=== PATIENT | male | born 1990 | race Caucasian/White ===

== ENCOUNTER → 2022-08-25 12:09 | Outpatient (BNVA) | payer SELFPAY | PROVIDERS: Visit Provider Nurse Practitioner Family | DX: R36.9 Urethral discharge, unspecified (principal); B37.49 Other urogenital candidiasis; E66.9 Obesity, unspecified; Z13.1 Encounter for screening for diabetes mellitus; Z13.220 Encounter for screening for lipoid disorders; B37.9 Candidiasis, unspecified; N34.2 Other urethritis | CPT/HCPCS: 80053; 80061; 83036; 87491; 87591; 87661 ==

== ENCOUNTER 2024-03-08 09:48 | Emergency (ER) | payer SELFPAY ==
[2024-03-08 10:03] VITALS: BP 147/89; PULSE 71; RESP 18; TEMP 36.8; O2SAT 98
--- NOTE | 2024-03-08 10:11 | ED_ITS ---
HPI - Skin/Abscess/Foreign Bdy General: Chief complaint: Skin/Abscess/Foreign Body Stated complaint: poison Josephine all over Time Seen by Provider: 03/08/24 10:03 Source: patient Mode of arrival: ambulatory Limitations: no limitations History of Present Illness: This patient presents to the emergency department because of generalized rash and itching. He states that he was out weed eating 2 days ago and spent most of the day involved in similar activities and other activities and did not get a shower until the end of the day. Subsequently he has developed itching and a red rash particularly on his trunk both upper and lower extremities and some on his face. No difficulty breathing swallowing etc. No other known environmental exposures. Has had a history of poison josephine as a teenager. He currently takes no medications and is in good health. MD complaint: rash Location: generalized Severity: moderate Quality: pruritic Relieving factors: none Associated symptoms: Deny chills, fever(s), nausea or vomiting Review of Systems Const: Denies: fever(s) or chills Eyes: Denies: change in vision, eye discomfort or eye discharge ENMT: Denies: throat pain, odynophagia, nasal discharge or nasal congestion Card: Denies: chest pain Resp: Denies: dyspnea, productive cough, non-productive cough or wheezing GI: Denies: nausea, vomiting or diarrhea Skin/Breast: Reports: rash, pruritus and erythema Neuro: Denies: headache(s), numbness in extremities or weakness in extremities Jayme/Lymph: Denies: easy bruising or easy bleeding Physical Exam Narrative: EXAM NARRATIVE: Gentleman was oriented and appeared to be comfortable. Answers questions a goal-directed fashion and fluent voice. Const: COMMON NORMALS: no acute distress, patient oriented x3, healthy appearing and alert GENERAL APPEARANCE: cooperative NUTRITIONAL APPEARANCE: overweight HENMT: COMMON NORMALS: normocephalic, Normal nasal mucous membranes and turbinates present, moist oral mucous membranes and oropharynx normal HEAD & SCALP: normocephalic FACE & SINUS: erythema (Faint erythema on forehead and the lateral portions of upper face) NOSE: Normal nasal mucous membranes and turbinates present Eye: COMMON NORMALS: Equal, round and reactive pupils present, EOMs intact bilaterally and conjunctivae normal CONJUNCTIVA: Yes conjunctivae normal PUPIL: Yes Equal, round and reactive pupils present Neck/C-Spine: COMMON NORMALS: full ROM Resp: COMMON NORMALS: normal respiratory effort, No use of accessory muscles and clear to auscultation bilaterally AUSCULTATION: clear to auscultation bilaterally Cardio: COMMON NORMALS: regular rate, regular rhythm, No murmurs present (Cardio) and Peripheral pulses 2+ throughout RATE: regular rate RHYTHM: regular rhythm PERIPHERAL PULSES: Peripheral pulses 2+ throughout GI: COMMON NORMALS: Soft to palpation PALPATION: Yes Soft to palpation Back/Pelvis: COMMON NORMALS: no thoracic nor lumbar tenderness and thoraco- lumbar ROM normal Extremity: COMMON NORMALS: full ROM, capillary refill normal, no clubbing, cyanosis or edema, no calf tenderness and no pedal edema Neuro: COMMON NORMALS: patient oriented x3, moves all extremities, no focal motor deficits and no sensory deficits noted SENSORIUM/ORIENTATION: Yes alert Psych: COMMON NORMALS: mental status grossly normal Skin: NARRATIVE SKIN EXAM: Multiple areas of patches of erythema with some excoriations in other locations. Skin of both lower extremities and less so of the upper extremities involved. Some involvement of the anterior trunk and on the upper posterior trunk. Minimal similar involvement of the periorbital areas and forehead. Course Vital Signs: Vital signs: Vital Signs Temperature 98.2 F 03/08/24 10:03 Pulse Rate 71 03/08/24 10:03 Respiratory Rate 18 03/08/24 10:03 Blood Pressure 147/89 03/08/24 10:03 Pulse Oximetry 98 03/08/24 10:03 Oxygen Delivery Me thod Room Air 03/08/24 10:03 MDM - Skin/Abscess/Foreign Bdy Medicial Decision Making Patient with a history consistent with Becky or contact dermatitis. His clinical exam supported that diagnosis as well. No evidence at this time to suggest cell ulitis or other ongoing emergency medical condition. He is being treated with oral steroids oral antihistamines with return precautions. No radiology studies performed this visit Discharge Plan Discharge Patient Disposition: Home Clinical Impression: Contact dermatitis Qualifiers: Contact dermatitis type: allergic Contact dermatitis trigger: non-food plants Qualified Code(s): L23.7 - Allergic contact dermatitis due to plants, except food Condition: Stable Prescriptions: New hydroxyzine HCl 25 mg tablet 25 mg PO Q6H PRN (Reason: itching) Qty: 30 0RF prednisone 20 mg tablet 20 mg PO BID Qty: 20 0RF No Action promethazine-DM 6.25-15 mg/5 mL syrup 5 - 10 ml PO Q6H PRN (Reason: cough) Qty: 200 0RF No Known Home Medications Discharge Orders: Discharge ED (Routine); Ordered 03/08/24 Ordered By: Russ Mcdonnell Referrals: Niurka Manrique NP [Primary Care Provider] - Discharge Diet: Usual diet Discharge Activity: Increase activity as tolerated Patient Instructions: Opioid Safety, Pain Management Activity Restrictions/Additional Instructions: As we discussed you have symptoms consistent with poison josephine which is a contact dermatitis from the plant oils getting on your skin. We have prescribed an antihistamine as well as a oral steroid to help with control your symptoms. You should take the steroids until they are completely finished to prevent rebound. If your symptoms do not continue to improve or worsen or you develop new symptoms at any time you are welcome to return to the emergency department. Coding Level of Care Code ED City Carrier Assistant for Nitin Landrum
[2024-03-08] MEDS: hyDROXYzine 25 mg Capsule PO (10:16)
[2024-03-08] MEDS: dexamethasone 10 mg/mL INJ IM (10:16)
== END 2024-03-08 10:36 | disposition home or self-care (01) ==
PROVIDERS: Emergency Provider Emergency Medicine; PCP Nurse Practitioner Family
DX: L23.7 Allergic contact dermatitis due to plants, except food (principal)
CPT/HCPCS: 96372; 99284; J1100